=== PATIENT | female | born 1970 | race Caucasian/White ===

== ENCOUNTER → 2016-07-28 | Outpatient (CLI) | payer BC | END | disposition home or self-care (01) | LOC: MMGSC 16:15 | PROVIDERS: ATTEND Family Medicine | DX: M54.5 Low back pain (principal); D72.829 Elevated white blood cell count, unspecified; R31.9 Hematuria, unspecified | CPT/HCPCS: 87086 ==

== ENCOUNTER → 2017-01-24 | Outpatient (CLI) | payer BC ==
--- NOTE | 2017-01-25 09:01 | MR ---
EXAMINATION TYPE: MR elbow RT wo con DATE OF EXAM: 01/24/2017 COMPARISON: NONE HISTORY: Rt elbow pain x 2 years Standard multiplanar, multisequence MRI departmental protocol Multiplanar, multisequence images of the right elbow were acquired. Diffusion weighted imaging was pe rformed. FINDINGS: There is a small joint effusion. Marrow signal is preserved. Joint spaces are preserved. No erosive change. There is edema along the lateral ligamentous complex compatible with a medial ligamentous tear. Tiny area of low signal corresponds to the x-ray abnormality submitted from [facility] ter may represent a previous avulsion fracture. Comment extends in tendon appears to demonstrate abno rmal signal compatible with tear. Biceps tendon appears intact. There is fluid signal surrounding the annular ligament. Intramuscular signal is maintained. No active marrow edema. No edema surrounding the neurovascular complex. IMPRESSION: Lateral epicondylitis with tear involving the lateral ligamentous complex and common extensor tendon. Outside x-ray demonstrates a thin bony density along the medial epicondylar region which likely repr esents previous avulsion fracture with no active marrow edema today's exam.
== END | disposition home or self-care (01) ==
LOC: RADMRIMAIN 16:25
PROVIDERS: ATTEND Orthopaedic Surgery
DX: M77.11 Lateral epicondylitis, right elbow (principal); S46.811A Strain of other muscles, fascia and tendons at shoulder and upper arm level, right arm, initial encounter; S53.491A Other sprain of right elbow, initial encounter

== ENCOUNTER → 2017-03-22 | Outpatient (CLI) | payer BC ==
[2017-03-22 19:02] LABS: C Reactive Protein <5.0 mg/L (<10.0); Rheumatoid Factor, Qnt <9 IU/mL (<12)
[2017-03-22 19:06] LABS: Basophils # (A) 0.1 k/uL (0-0.2); Basophils % (A) 1 %; CH 29.3; CHCM 32.6; Eosinophils # (A) 0.1 k/uL (0-0.7); Eosinophils % (A) 2 %; HCT 44.5 % (34.0-46.0); HDW 2.28; HGB 14.3 gm/dL (11.4-16.0); Luc # (Auto) 0.19; Luc % (Auto) 3; Lymphocytes # (A) 2.1 k/uL (1.0-4.8); Lymphocytes % (A) 33 %; MCH 28.9 pg (25.0-35.0); MCHC 32.1 g/dL (31.0-37.0); MCV 90.3 fL (80.0-100.0); Mean Platelet Volume 8.1; Monocytes # (A) 0.4 k/uL (0-1.0); Monocytes % (A) 6 %; Neutrophils # (A) 3.5 k/uL (1.3-7.7); Neutrophils % (A) 55 %; RBC 4.93 m/uL (3.80-5.40); RDW 12.6 % (11.5-15.5); WBC 6.3 k/uL (3.8-10.6); WBC (Perox) 6.06
[2017-03-22 21:46] LABS: Erythrocyte Sedimentation Rate 8 mm/hr (0-20)
== END ==
LOC: MMGSC 09:19
PROVIDERS: ATTEND Orthopaedic Surgery
DX: M25.50 Pain in unspecified joint (principal)
CPT/HCPCS: 36415; 85025; 85652; 86038; 86140; 86431

== ENCOUNTER 2023-10-26 08:45 | Day surgery (SDC) | payer BC ==
[2023-10-24 11:59] VITALS: BMI 25.0
[2023-10-26 09:13] VITALS: TEMP 97
[2023-10-26] MEDS: LACTATED RINGERS 1,000 ML IV SCH (09:18)
[2023-10-26] MEDS ORDERED: PROPOFOL 10 MG/ML 20 ML VIAL IV ONE (09:58)
--- NOTE | 2023-10-26 10:13 | P.PCN ---
Date of Procedure: 10/26/23 Procedure(s) Performed: BRIEF HISTORY: Patient is a 53-year-old pleasant white female scheduled for an elective colonoscopy as a part of Screening for colon cancer/positive cologuard PROCEDURE PERFORMED: Colonoscopy with cold biopsy. PREOPERATIVE DIAGNOSIS: Screening for colon cancer/positive cologuard. IV sedation per Anesthesia. PROCEDURE: After informed consent was obtained, the patient, was brought into the endoscopy unit. IV sedation was administered by Anesthesia under continuous monitoring. Digital rectal examination was normal. Initially the Olympus CF-160 flexible video colonoscope was then inserted in the rectum, gradually advanced into the cecum without any difficulty. Careful examination was performed as the scope was gradually being withdrawn. Ileocecal valve and the appendiceal orifice were visualized and appeared normal. Prep was excellent. Mucosa of the cecum, ascending colon, transverse colon, descending colon, sigmoid colon, and rectum appeared normal. In the proximal rectum there was a 3 mm polyp that was removed by cold biopsy.Retroflexion was performed in the rectum and no lesions were seen. The patient tolerated the procedure well. IMPRESSION: 3 mm proximal rectal polyp status post cold biopsy Rest of the colon appeared normal RECOMMENDATIONS: Findings of this examination were discussed with the patient as well as her family. She was advised to follow with the biopsy results. If the biopsy reveals adenoma she can have a repeat colonoscopy in 5 years..
[2023-10-26 11:28] VITALS: BP 127/78; PULSE 78; RESP 18
== END 2023-10-26 10:53 | disposition home or self-care (01) ==
LOC: ORWHC2ENDO 08:45
PROVIDERS: ATTEND Internal Medicine Gastroenterology
DX: K62.1 Rectal polyp (principal); E78.5 Hyperlipidemia, unspecified; F41.9 Anxiety disorder, unspecified; K21.9 Gastro-esophageal reflux disease without esophagitis; Z79.899 Other long term (current) drug therapy; Z98.890 Other specified postprocedural states
CPT/HCPCS: 88305; 45380; J2704